=== PATIENT | female | born 1990 | race Caucasian/White ===

== ENCOUNTER → 2022-06-17 15:04 | Outpatient (BNVA) | payer BC, SELFPAY | PROVIDERS: Family Provider Family Medicine; PCP Family Medicine; Visit Provider Nurse Practitioner Women's Health | DX: Z01.419 Encounter for gynecological examination (general) (routine) without abnormal findings (principal) | CPT/HCPCS: 87624 ==

== ENCOUNTER 2024-11-05 02:37 | Inpatient (IN) | payer BC, MEDICAID, SELFPAY ==
[2024-11-05] VITALS (62 sets, daily range): BP systolic 89–136; BP diastolic 51–74; PULSE 58–115; RESP 16–18; TEMP 36.8–36.9; O2SAT 78–100; BMI 27.6
[2024-11-05 01:37] LABS: Nitrazine Paper, PH Positive
[2024-11-05] MEDS: dextrose 5%-lactated ringers 1,000 ML 125 ML IV (02:25)
[2024-11-05] MEDS: ampicillin 2,000 MG in sodium chloride 0.9% (plus) 50 ML 100 MG IV (02:26)
[2024-11-05 02:36] LABS: Basophils % 0.2 %; Eosinophils # 0.1 10^3/uL (0.0-0.8); Eosinophils % 0.7 %; Hematocrit 35.7 % (36-47); Lymphocytes # 1.6 10^3/uL (0.8-4.8); Lymphocytes % 13.6 %; Mean Corpuscular HGB Conc 33.1 g/dL (30-55); Mean Corpuscular Hemoglobin 29.1 pg (27-33); Mean Corpuscular Volume 87.9 fl (85-98); Monocytes # 1.2 10^3/uL (0.2-0.9); Monocytes % 9.8 %; Neutrophils % 75.1 %; Nucleated Red Blood Cells % 0 %; Platelet Count 147 10^3/cmm (157-399); Red Blood Count 4.06 10^6/uL (3.85-5.65); Red Cell Distribution Width 13.6 % (12.1-15.1); White Blood Count 11.97 10^3/uL (3.29-11.43)
[2024-11-05] MEDS: sodium chloride 0.9% 1,000 ML 999 ML IV ×2 (02:55→03:55)
[2024-11-05] MEDS: ondansetron 2 mg/ML SDV 2 mL 4 MG IVP (03:13)
--- NOTE | 2024-11-05 03:38 | P.ANESASSM_ITS ---
Pre-Anesthetic Assessment Height/Weight: Height 1.68 m Weight 77.564 kg Pulse Resp BP O2 Del Method 78 16 95/53 Room Air 11/05/24 02:55 11/05/24 01:34 11/05/24 02:55 11/05/24 01:36 Preop Diagnosis: intrauterine Epidural Familial anesthetic complications: none Was Beta Maria Fernanda taken within 24 hours: N/A Was Clonidine taken within 24 hours: N/A Social No alcohol and No tobacco Exam alert, oriented x 3, clear to auscultation bilaterally and regular rate & rhythm Airway Cervical ROM: within normal limits Mallampati: Class II Dentition: full History/ROS No significant history except as noted Pulmonary None reported CV/HEM None reported None reported Hepatic None reported GI None reported Metabolic None reported Musc/skel None reported Neuropsych None reported Anesthetic Plan ASA status: 2 Anesthesia: Eval. for regional block and Regional (specify below) (Epidural) Other Pertinent Information platelets 147, 1L bolus given Medications/Allergies Home Medications ?Medication ?Instructions ?Recorded ?Confirmed ?Last Taken ?Type pdaasmgu-qyx-Ky-FA 1 mg 1 tab PO 1XD 11/05/24 11/05/24 11/04/24 History tablet Allergies Allergy/AdvReac Type Severity Reaction Status Date / Time No Known Allergies Allergy Verified 07/01/23 09:13 Current Medications Generic Name Dose Route Start Last Admin Trade Name Freq PRN Reason Stop Dose Admin Dextrose/Lactated Ringer's 1,000 mls @ 125 mls/hr 11/05/24 01:45 11/05/24 02:55 Dextrose 5%-Lactated Ringers IV 0 mls/hr .Q8H HEBER Infusion Sodium Chloride 1,000 mls @ 999 mls/hr 11/05/24 02:46 11/05/24 02:55 Sodium Chloride 0.9% IV 999 mls/hr .Q1H1M PRN Administration See label comments Ondansetron HCl 4 mg 11/05/24 01:34 11/05/24 03:13 Ondansetron 2 Mg/Ml Sdv 2 Ml IVP 4 mg Q4H PRN Administration NAUSEA AND VOMITING PFSH Anesthesia Medical History No pertinent past medical history neghx: htn,dm,thyroid,dvt/pe PCP: Dr. Onofre Surgical History No significant past surgical history Family History Grandfather Hypertension Maternal Diabetes Maternal Cancer Prostate cancer Grandmother Hypertension Maternal Family history of thyroid problem Maternal Father Cancer Skin cancer Hyperlipidemia Mother Family history of thyroid problem Denies family history of Colon cancer Ovarian cancer Heart disease Breast cancer Uterine cancer Stroke Social History Substance/Drug Use: never Female Reproductive History : 2 Data Anesthesia 11/05/24 01:40 Short CBC 11/05/24 Range/Units 01:40 WBC 11.97 H (3.29-11.43) 10^3/uL Hgb 11.80 (11.27-16.99) g/dL Hct 35.7 L (36-47) % MCV 87.9 (85-98) fl Plt Count 147 L (157-399) 10^3/cmm Neut % (Auto) 75.1 % Neut # (Auto) 9.00 H (1.8-7.7) 10^3/uL Cardiac Studies: 2 No Data to Display Anesthesia Procedures Epidural Time Out Performed: Yes (name, , procedure, labs, anticoagulation, allergies, local anesthetic) Consents Signed: Procedure Consent Consent: from patient Lumbar Level: L4-L5 Epidural position: sitting Epidural procedure: sterile prep of area, 1% lidocaine to numb the area, 18 g needle, negative for paresthesia passed, neg for paresthesia, test dose given, 1.5% xylocaine 1:200k epi (5), 0.2% Ropivacaine bolus ml (5), placed PCEA, no systemic response, sterile dressing applied, L.U.D. no apparent complications and 0.2% Ropiavacaine @ mls/hr (10) Additional Comments: MELINDA at 4cm, easy placement, pt. tolerated well.
[2024-11-05] MEDS: ROPivacaine syringe 100 MG/50 ML SYRINGE 10 MG EPIDURAL (03:59)
[2024-11-05] MEDS: ampicillin 1,000 MG in sodium chloride 0.9% (plus) 50 ML 100 MG IV (06:10)
[2024-11-05] MEDS: oxytocin 30 UNIT/500 ML BAG 600 UNIT IV (06:25)
--- NOTE | 2024-11-05 07:16 | PM.OPHPUD ---
Labor & Delivery H&P Update Date of Procedure: November 05, 2024 Date H&P Performed: 11/01/24 Changes to previous documentation: The patient arrived to the hospital with spontaneous rupture membranes and active labor. Admission Diagnosis: 34-year-old 2 para 1-0-0-1 at 39 weeks and 6 days estimated gestational age Preop diagnosis: intrauterine Planned procedure: Vaginal delivery Other information: The patient is a pleasant 34-year-old female who had an unremarkable . Her labs are unremarkable. Her blood type is a positive. Her antibody screen is negative. She passed her glucose screen. She is rubella immune. She was GBS positive. The remainder of her infectious disease profile is within normal limits. The patient's membranes ruptured about 21 hours prior to delivery. She arrived to the hospital about 4 to 5 hours prior to delivery. She is having consistent contractions. Related Problem List Diagnoses (1) 39 weeks gestation of : (2) Positive GBS test: A&P Assessment and plan (1) 39 weeks gestation of : I anticipate routine labor and delivery. GBS protocol has been initiated Status: Acute (2) Positive GBS test: Status: Acute PDMP PDMP Reviewed: Not Reviewed
--- NOTE | 2024-11-05 07:19 | PM.DELIVERY ---
Delivery Note: Date of delivery: November 05, 2024 Pre-delivery diagnoses: 34-year-old 2 para 1-0-0-1 at 39 weeks estimated gestational age presenting with spontaneous rupture membranes and active labor Post-delivery diagnoses: Status post spontaneous vaginal delivery Procedure: Spontaneous vaginal delivery Delivering Physician: Hugo Moore Estimated blood loss (mL): 100 Pre-Delivery Course: The patient presented to the hospital with spontaneous rupture membranes and active labor. Her membranes ruptured approximately 10:00 in the morning the day prior to arriving at the hospital. GBS protocol was initiated. An epidural was placed. She progressed to complete without difficulty. Delivery: DELIVERY: The patient progressed to complete without difficulty. She delivered a female with a weight of 7 pounds 12 ounces with Apgars of 8, 9. The baby was delivered from the ARMANDO position. The baby's mouth and nose were suctioned at the site of the perineum. The baby was then completely delivered and placed on the mother's abdomen. The cord was then clamped and cut. There was no nuchal cord. There was no meconium. The placenta and 3 vessel cord were delivered intact shortly thereafter. The perineum and vaginal vault were carefully examined. Bilateral superficial vaginal wall lacerations were noted. No repair was required.. Both the mother and the baby were in stable condition. History History History 2 Term 1 0 Miscarriages/Ectopic 0 Living Children 1 A&P Assessment and plan (1) Spontaneous vaginal delivery: I anticipate routine care. PDMP PDMP Reviewed: Not Reviewed Coding Level of Care Code Acute Code for Chg Fwd Diagnoses Spontaneous vaginal delivery O80
[2024-11-05] MEDS: benzocaine-menthol 78 gm Canister 1 SPRAY TOPICAL (11:53)
[2024-11-05] MEDS: lanolin oint 7 gm 1 APPLIC TOPICAL (11:54)
--- NOTE | 2024-11-05 14:52 | ANE.PACU2 ---
Inpatient post-anesthesia follow up: Airway intact: Yes Vital signs: Temperature 97.9 F Pulse Rate 72 Respiratory Rate 14 Blood Pressure 102/78 Pulse Oximetry 98 Oxygen Delivery Me thod Room Air Oxygen Flow Rate Fraction of Inspir ed Oxygen Hydration adequate: Yes Nausea and vomiting: No Pain level: 1 Mental status: Baseline Epidural Start/End: Epidural Start Date: 11/05/24 Epidural Start Time: 03:42 Epidural End Date: 11/05/24 Epidural End Time: 10:39
[2024-11-05 20:15] LABS: Hematocrit 32.1 % (36-47); Mean Corpuscular Hemoglobin 29.7 pg (27-33); Mean Corpuscular Volume 87.5 fl (85-98); Mean Platelet Volume 10.8 fL (7.4-10.4); Platelet Count 160 10^3/cmm (157-399); Red Blood Count 3.67 10^6/uL (3.85-5.65); Red Cell Distribution Width 13.8 % (12.1-15.1); White Blood Count 14.51 10^3/uL (3.29-11.43)
[2024-11-05] MEDS: ibuprofen 800 mg tablet PO (21:33)
[2024-11-06 02:00] VITALS: BP 112/69; PULSE 70; RESP 18; TEMP 36.8; O2SAT 98
[2024-11-06 04:19] VITALS: BP 90/63; PULSE 62; RESP 14; TEMP 36.6; O2SAT 99
--- NOTE | 2024-11-06 06:58 | P.DS_ITS ---
Discharge Providers REFINERY OPERATOR VISBREAKING Date of Admission: 11/05/24 02:37 Date of Discharge: 11/06/24 Attending Provider at Admission: Hugo Moore MD Attending Provider at Discharge: Hugo Moore MD Primary Care Provider: Jamey Onofre DO Diagnoses at Discharge Discharge Diagnosis (1) Spontaneous vaginal delivery: Status: Acute Reason for Visit Reason for Visit: Contractions Hospital Course Hospital Course The patient arrived to the hospital status post spontaneous rupture membranes and in active labor. She received an epidural. She progressed to complete and had an unremarkable delivery of a healthy appearing female . Her course was also been unremarkable. The baby's had some difficulty with feeding. Otherwise she is doing well. Information Peripartum Data: Delivery Method: Vaginal Physical Exam Narrative: The patient is alert. She appears comfortable. Her heart has a regular rate and rhythm with no murmurs appreciated. Lungs are clear to auscultation bilaterally. Her fundus is firm and below the umbilicus. Urinary Catheter Management: Durand: Cath Placed During This Visit: yes, but has since been removed by the nurse Reason for Continuing Indwelling Catheter: Decision to DC Catheter Urinary Catheter Date of Insertion: 11/05/24 Urinary Catheter Time of Insertion: 04:40 Date Urinary Catheter Removed: 11/05/24 Time Urinary Catheter Discontinued: 06:20 History History History 2 Term 1 0 Miscarriages/Ectopic 0 Living Children 1 Discharge Data Studies Completed and Pending Laboratory Results WBC 14.51 10^3/uL (3.29-11.43) H 11/05/24 20:10 RBC 3.67 10^6/uL (3.85-5.65) L 11/05/24 20:10 Hgb 10.90 g/dL (11.27-16.99) L 11/05/24 20:10 Hct 32.1 % (36-47) L 11/05/24 20:10 MCV 87.5 fl (85-98) 11/05/24 20:10 MCH 29.7 pg (27-33) 11/05/24 20:10 MCHC 34.0 g/dL (30-55) 11/05/24 20:10 RDW 13.8 % (12.1-15.1) 11/05/24 20:10 Plt Count 160 10^3/cmm (157-399) 11/05/24 20:10 MPV 10.8 fL (7.4-10.4) H 11/05/24 20:10 Neut % (Auto) 75.1 % 11/05/24 01:40 Lymph % (Auto) 13.6 % 11/05/24 01:40 Glades % (Auto) 9.8 % 11/05/24 01:40 Eos % (Auto) 0.7 % 11/05/24 01:40 Baso % (Auto) 0.2 % 11/05/24 01:40 Neut # (Auto) 9.00 10^3/uL (1.8-7.7) H 11/05/24 01:40 Lymph # (Auto) 1.6 10^3/uL (0.8-4.8) 11/05/24 01:40 Glades # (Auto) 1.2 10^3/uL (0.2-0.9) H 11/05/24 01:40 Eos # (Auto) 0.1 10^3/uL (0.0-0.8) 11/05/24 01:40 Baso # (Auto) 0.0 10^3/uL (0.0-0.1) 11/05/24 01:40 Nucleated RBC % (auto) 0 % 11/05/24 01:40 Nucleated RBCs # 0.0 /100WBC 11/05/24 01:40 Fluid pH (paper) Positive H 11/05/24 01:17 Blood Type A Positive 11/05/24 01:40 Rho(D) Type Rh positive 11/05/24 01:40 Antibody Screen Negative 11/05/24 01:40 Vitals Last Vital Signs Temp 97.9 F 11/06/24 04:19 Pulse 62 11/06/24 04:19 Resp 14 11/06/24 04:19 BP 90/63 11/06/24 04:19 Pulse Ox 99 11/06/24 04:19 O2 Del Method Room Air 11/06/24 04:19 Results Labs OB ([facility]): Blood Type A Positive 11/05/24 Antibody Screen Negative 11/05/24 Hct 32.1 % (36-47) L 11/05/24 Hgb 10.90 g/dL (11.27-16.99) L 11/05/24 Rho(D) Type Rh positive 11/05/24 Plt Count 160 10^3/cmm (157-399) 11/05/24 Discharge Plan Discharge Patient Disposition: Home Condition: Stable Prescriptions: New ibuprofen 800 mg Tablet 800 mg PO TID Qty: 45 0RF Continued wehctcjl-gqs-Ed-FA 1 mg Tablet 1 tab PO 1XD Discharge Orders: Discharge Order (Routine); Ordered 11/06/24 Ordered By: Hugo Moore Referrals: Hugo Moore MD [Physician] - 6 Weeks Discharge Diet: Usual diet Discharge Activity: Limit activity as instructed Patient Instructions: Opioid Safety Discharge Attestations REFINERY OPERATOR VISBREAKING Time Spent in Discharge Care*: less than 30 min Coding Level of Care Code Acute Code for Chg Fwd Diagnoses Spontaneous vaginal delivery O80
[2024-11-06] MEDS: docusate sodium 100 mg Capsule PO (08:27)
[2024-11-06] MEDS: ibuprofen 800 mg tablet PO (08:27)
[2024-11-06 10:29] VITALS: BP 101/78; PULSE 81; TEMP 36.4
[2024-11-06 12:33] VITALS: BP 102/78; PULSE 72; TEMP 36.6; O2SAT 98
== END 2024-11-06 12:33 | disposition home or self-care (01) | DRG 807 ==
LOC: OPOB 02:37 → OBGYN 02:37
PROVIDERS: Admitting Provider Family Medicine; PCP Family Medicine; Visit Provider Family Medicine
DX: O99.824 Streptococcus B carrier state complicating childbirth (principal); Z37.0 Single live birth; Z3A.39 39 weeks gestation of pregnancy
CPT/HCPCS: 36415; 51702; 59025; 59409; 83986; 85025; 85027; 86850; 86900; 99211; J0290; J2405; J2590; J2795; J7030; J7121; J9999